=== PATIENT | female | born 1990 | race Caucasian/White ===

== ENCOUNTER 2016-12-05 22:00 | Inpatient (IN) | payer OTHER ==
[~2016-12-05] VITALS: Ht 167.6 cm; Wt 115.2 kg
[2016-12-05 22:16] VITALS: BP 132/78
[2016-12-05] MEDS ORDERED: SYNTHROID200 MCG PO (22:38)
[2016-12-05] MEDS ORDERED: VITAMIN D34000 UNIT PO (22:39)
[2016-12-05] MEDS ORDERED: PRENATAL TABLE1 EAC3 PO (22:40)
[2016-12-05] MEDS ORDERED: VALTREX50 MG/ML PO (22:40)
[2016-12-05 23:44] VITALS: BP 126/69
[2016-12-05 23:59] LABS: EOSINOPHIL (%) 0.5 % (0-5); EOSINOPHIL COUNT 0.1 K/uL (0-0.3); HEMATOCRIT 33.9 % (36.0-46.0); IMMATURE GRANULOCYTE COUNT 0.3 K/uL; INSTRUMENT ABS NEUTROPHIL CT 8.9 K/uL; LYMPHOCYTE COUNT 2.7 K/uL (1.0-2.8); MCH 26.3 PG (29.0-34.0); MCHC 32.2 G/DL (30.0-36.0); MCV 81.7 FL (83-99); MEAN PLAT.VOLUME 10.8 uM^3 (9.5-12.4); MONOCYTE COUNT 0.9 K/uL (0-0.8); NEUTROPHIL (%) 69.5 % (45-76); NEUTROPHIL COUNT 8.9 K/uL (1.8-6.4); PLATELET COUNT 264 K/uL (156-360); RBC DIS.WIDTH-CV 14.4 % (11.8-14.6); RED BLOOD COUNT 4.15 M/uL (3.80-5.20); WHITE BLOOD COUNT 12.9 K/uL (4.1-10.2)
[2016-12-06] VITALS (31 sets, daily range): BP systolic 105–148; BP diastolic 55–82
[2016-12-06] MEDS ORDERED: IBUPROFEN800 MG PO (18:43)
[2016-12-07 23:04] VITALS: BP 113/56
[2016-12-08 07:49] VITALS: BP 105/56
[2016-12-08 13:59] VITALS: BP 131/85
== END 2016-12-08 19:45 | disposition home or self-care (01) | DRG 775 ==
LOC: LDRP-OP 22:00 → 2WEST 22:01 → LDRP-OP 01-20 09:50
PROVIDERS: Obstetrics & Gynecology
PROC: 3E033VJ Introduction of Other Hormone into Peripheral Vein, Percutaneous Approach (ICD-10-PCS; principal; 2016-12-05)
PROC: 3E0S3CZ (ICD-10-PCS; principal; 2016-12-05)
PROC: 00HU33Z Insertion of Infusion Device into Spinal Canal, Percutaneous Approach (ICD-10-PCS; principal; 2016-12-05)
PROC: 10E0XZZ Delivery of Products of Conception, External Approach (ICD-10-PCS; 2016-12-06)
DX: O42.02 Full-term premature rupture of membranes, onset of labor within 24 hours of rupture (principal); Z3A.38 38 weeks gestation of pregnancy; Z37.0 Single live birth; O99.284 Endocrine, nutritional and metabolic diseases complicating childbirth; E03.9 Hypothyroidism, unspecified; O99.214 Obesity complicating childbirth; E66.9 Obesity, unspecified; Z68.30 Body mass index [BMI] 30.0-30.9, adult; O99.824 Streptococcus B carrier state complicating childbirth
CPT/HCPCS: 85025; C1755; G0378; J2540; J3010; J7120